=== PATIENT | male | born 1960 | race Caucasian/White ===

== ENCOUNTER 2020-11-01 10:27 | Outpatient (CLI) | payer BC | END 2020-11-01 10:28 | disposition home or self-care (01) | LOC: COV 10:27 | PROVIDERS: ATTEND Family Medicine | DX: R50.9 Fever, unspecified (principal); R53.83 Other fatigue; R19.7 Diarrhea, unspecified; R11.2 Nausea with vomiting, unspecified; Z20.828 Contact with and (suspected) exposure to other viral communicable diseases ==

== ENCOUNTER 2023-03-11 12:34 | Outpatient (CLI) | payer BC ==
[~2023-03-11 12:34] MED LIST: GADOBUTROL 7.5 MMOL/7.5 ML VIAL ONE
[2023-03-11 12:56] LABS: CREATININE 0.7 mg/dL (0.6-1.2)
--- NOTE | 2023-03-11 16:21 | MRI Report ---
PROCEDURE: PELVIS W/WO INDICATIONS: PROSTATE CA CONTRAST: gadavist 6.4ml TECHNIQUE: Coronal ultra fast SE, axial T1 FSE with fat saturation, 3-plane nonbreath-hold T2 FSE. After the ad ministration of contrast, dynamic axial, delayed axial and coronal ultra fast GE or 2-D spoiled GE wi th fat saturation through the pelvis. Optional diffusion weighted imaging and ADC may be performed. COMPARISON: None. FINDINGS: Image quality: Diffusion weighted and dynamic contrast enhanced images are diagnostic. Prostate: Gland size is 6.5 x 5.3 x 5.9 cm; ellipsoid gland volume is 106 mL. Hypertrophy of the tr ansition zone and median zone. No PI-RADS 3-5 lesions. Genitourinary system: Bladder wall trabeculation. No hydronephrosis. Bowel and peritoneum: No pathologic free pelvic fluid. Inferior colon and small bowel loops are nor mal in caliber. Nodes and vessels: No pelvic or inguinal adenopathy by size criteria. Iliac vessels are normal in c aliber. Soft tissues: No inguinal hernias. Bones: Bone marrow demonstrates normal overall signal. No suspicious bony lesions. IMPRESSION: No PI-RADS 3-5 lesions. No pelvic adenopathy or aggressive osseous abnormality. Reviewed by: Ramy Huston on 03/11/2023 4:20 PM PDT Approved by: Ramy Huston on 03/11/2023 4:20 PM PDT Station ID: [id number]
[2023-03-11] MEDS ORDERED: GADOBUTROL 7.5 MMOL/7.5 ML VIAL IVP ONE (18:29)
== END 2023-03-11 12:35 | disposition home or self-care (01) ==
LOC: LAB 12:34
PROVIDERS: ATTEND Urology
DX: C61 Malignant neoplasm of prostate (principal); R39.9 Unspecified symptoms and signs involving the genitourinary system
CPT/HCPCS: 36415; 72197; 82565; 84520; A9585